=== PATIENT | female | born 1945 | race Hispanic/Latino ===

== ENCOUNTER 2017-07-17 17:42 | Emergency (ER) | payer SELFPAY ==
--- NOTE | 2017-07-17 20:00 | RAD ---
RIGHT KNEE FOUR VIEWS: INDICATIONS: Right knee swelling and pain. FINDINGS: There is mild osteoarthrosis of the right knee. No acute fracture or subluxation is evident. There are mild vascular calcifications seen within the posterior soft tissues. IMPRESSION: Mild osteoarthrosis of the right knee. No acute osseous abnormality. POS: [facility]
== END 2017-07-17 20:00 | disposition home or self-care (01) ==
LOC: ERS 17:42
DX: M17.11 Unilateral primary osteoarthritis, right knee (principal)